=== PATIENT | female | born 1990 | race American Indian/Alaskan Native ===

== ENCOUNTER 2017-04-19 16:25 | Emergency (ER) | payer MEDICAID ==
[2017-04-19 17:04] VITALS: BP 122/72
[2017-04-19 17:45] LABS: Anion Gap 18 mmol/L; BUN/Creatinine Ratio 18; Basophils % (Auto) 0.2 % (0.0-1.8); Blood Urea Nitrogen 11 mg/dL (7-17); Calcium 9.6 mg/dL (8.4-10.2); Carbon Dioxide 27 mmol/L (22-30); Eosinophils % (Auto) 0.6 % (0.0-4.3); Glucose 94 mg/dL (65-100); Hematocrit 37.7 % (30.3-42.9); Hemoglobin 12.5 gm/dl (10.1-14.3); Mean Corpuscular HGB Conc 33 % (30-34); Mean Corpuscular Hemoglobin 27 pg (28-32); Mean Corpuscular Volume 81 fl (79-97); Platelet Count 275 K/mm3 (140-440); Potassium 3.9 mmol/L (3.6-5.0); Red Blood Count 4.68 M/mm3 (3.65-5.03); Sodium 142 mmol/L (137-145); White Blood Count 10.2 K/mm3 (4.5-11.0)
== END 2017-04-19 19:50 | disposition left against medical advice (07) ==
LOC: ED 16:25
DX: R10.9 Unspecified abdominal pain (principal); R19.7 Diarrhea, unspecified; Z53.21 Procedure and treatment not carried out due to patient leaving prior to being seen by health care provider
CPT/HCPCS: 36415; 80048; 85025

== ENCOUNTER 2020-08-11 22:44 | Emergency (ER) | payer MEDICAID ==
--- NOTE | 2020-08-11 22:50 | Emergency Department Report ---
ED General Adult HPI - General Stated complaint: CHEST PAIN PUI?: No Time Seen by Provider: 08/11/20 22:46 - History of Present Illness Initial comments: Obese [place] female assessment department complaint of left breast/chest pain presents emerged department complaining of pain is been present since last night. Chest pain to under left breast since last night. Sharp and burning. Runny nose. Denies N&V or jasbir. Cough last night. Denies fever or chills. MAEW. Nonlabored -: Gradual, Last night Location: chest Radiation: non-radiation Severity scale (0 -10): 9 Quality: aching, sharp Consistency: intermittent Improves with: none Worsens with: none Associated Symptoms: chest pain - Related Data Previous Rx's Medication Instructions Recorded Last Taken Type Hyoscyamine Subl [Levsin Sl] 0.125 mg PO Q6HR #20 tablet 12/11/13 Unknown Rx Omeprazole [Prilosec] 20 mg PO QDAY #60 capsule. 12/11/13 Unknown Rx Ondansetron [Zofran] 4 mg PO Q6HR PRN #20 tablet 12/11/13 Unknown Rx Allergies Allergy/AdvReac Type Severity Reaction Status Date / Time fluconazole [From Diflucan] Allergy Unknown Verified 08/11/20 22:58 ED Review of Systems ROS: Stated complaint: CHEST PAIN Other details as noted in HPI Comment: All other systems reviewed and negative ED Past Medical Hx - Past Medical History Hx GERD: Yes Additional medical history: heart murmur - Surgical History Additional Surgical History: c-sectionx3 - Social History Smoking Status: Never Smoker Substance Use Type: None - Medications Home Medications: Home Medications Medication Instructions Recorded Confirmed Last Taken Type Hyoscyamine Subl [Levsin Sl] 0.125 mg PO Q6HR #20 tablet 12/11/13 Unknown Rx Omeprazole [Prilosec] 20 mg PO QDAY #60 capsule. 12/11/13 Unknown Rx Ondansetron [Zofran] 4 mg PO Q6HR PRN #20 tablet 12/11/13 Unknown Rx ED Physical Exam - General General appearance: alert, in no apparent distress - Head Head exam: Present: atraumatic, normocephalic - Eye Eye exam: Present: normal appearance, PERRL - ENT ENT exam: Present: mucous membranes moist - Neck Neck exam: Present: normal inspection - Respiratory Respiratory exam: Present: normal lung sounds bilaterally, rhonchi, chest wall tenderness. Absent: respiratory distress, accessory muscle use, decreased breath sounds - Cardiovascular Cardiovascular Exam: Present: regular rate, normal rhythm. Absent: systolic murmur, diastolic murmur, rubs, gallop - GI/Abdominal GI/Abdominal exam: Present: soft, normal bowel sounds - Extremities Exam Extremities exam: Present: normal inspection - Back Exam Back exam: Present: normal inspection - Neurological Exam Neurological exam: Present: alert, oriented X3 - Psychiatric Psychiatric exam: Present: normal affect, normal mood - Skin Skin exam: Present: warm, dry, intact, normal color. Absent: rash ED Course Vital Signs 08/11/20 22:57 Temperature 97.0 F L Pulse Rate 88 Respiratory 16 Rate Blood Pressure 130/76 O2 Sat by Pulse 99 Oximetry Critical care attestation.: If time is entered above; I have spent that time in minutes in the direct care of this critically ill patient, excluding procedure time. ED Disposition Clinical Impression: Chest pain Disposition: Z-07 [facility] [place] Is pt being admited?: No Does the pt Need Aspirin: No Condition: Stable Instructions: Chest Pain (ED), Nonspecific Chest Pain, Adult
[2020-08-11 22:59] VITALS: BP 130/76
--- NOTE | 2020-08-11 23:25 | XRay Report ---
CHEST 2 VIEWS INDICATION / CLINICAL INFORMATION: Chest pain for 2 days. COMPARISON: FINDINGS: SUPPORT DEVICES: None. HEART / MEDIASTINUM: No significant abnormality. LUNGS / PLEURA: No significant pulmonary or pleural abnormality. No pneumothorax. ADDITIONAL FINDINGS: No significant additional findings. IMPRESSION: 1. No acute findings. Signer Name: Francisco Chan MD Signed: 08/11/2020 11:21 PM Workstation Name: [id number]
== END 2020-08-11 22:58 | disposition left against medical advice (07) ==
LOC: ED 22:44
DX: R07.9 Chest pain, unspecified (principal); Z53.21 Procedure and treatment not carried out due to patient leaving prior to being seen by health care provider
CPT/HCPCS: 71046; 93005

== ENCOUNTER 2022-02-15 08:25 | Emergency (ER) | payer MEDICAID ==
--- NOTE | 2022-02-15 09:29 | XRay Report ---
CHEST 2 VIEWS INDICATION / CLINICAL INFORMATION: SOB. COMPARISON: 08/11/2020 FINDINGS: SUPPORT DEVICES: None. HEART / MEDIASTINUM: No significant abnormality. LUNGS / PLEURA: No significant pulmonary or pleural abnormality. No pneumothorax. ADDITIONAL FINDINGS: No significant additional findings. IMPRESSION: 1. No acute findings. Signer Name: Paul Payne Jr, MD Signed: 02/15/2022 9:25 AM Workstation Name: [id number]
--- NOTE | 2022-02-15 09:43 | Emergency Department Report ---
Minor Respiratory - HPI Chief Complaint: Dyspnea/Respdistress Stated Complaint: SOB/VOMITTING/LOW SUGAR Time Seen by Provider: 02/15/22 09:27 ED Review of Systems ROS: Stated complaint: SOB/VOMITTING/LOW SUGAR Other details as noted in HPI Comment: All other systems reviewed and negative ED Past Medical Hx - Past Medical History Previous Medical History?: Yes Hx Hypertension: Yes Hx GERD: Yes Hx Asthma: Yes Additional medical history: heart murmur, TBI with chronic headaches, anemia - Surgical History Past Surgical History?: Yes Additional Surgical History: c-sectionx3 - Family History Family history: no significant - Social History Smoking Status: Former Smoker Substance Use Type: None - Medications Home Medications: Home Medications Medication Instructions Recorded Confirmed Last Taken Type Famotidine [Pepcid] 20 mg PO DAILY #30 tablet 02/15/22 Unknown Rx Minor Respiratory Exam - Exam General: Vital signs noted. No distress. Alert and acting appropriately. HEENT: Yes Moist Mucous Membranes, No Pharyngeal Erythema, No Pharyngeal Exudates, No Rhinorrhea, No Conjuctival Injection, No Frontal Tenderness, No M axillary Tenderness Ear: Neither TM Bulge, Neither TM Erythema, Neither EAC Pain, Neither EAC Discharge Neck: Yes Supple, No Adenopathy Lungs: Yes Good Air Exchange, No Wheezes, No Ronchi, No Stridor, No Cough, No Labored Respirations, No Retractions, No Use of Accessory Muscles, No Other Abnormal Lung Sounds Heart: Yes Regular, No Murmur Abdomen: Yes Normal Bowel Sounds, No Tenderness, No Peritoneal Signs Skin: No Rash, No Edema Neurologic: Alert and oriented, no deficits. Musculoskeletal: Unremarkable. ED Course Vital Signs 02/15/22 08:59 Temperature 97.9 F Pulse Rate 61 Respiratory 16 Rate Blood Pressure 145/97 O2 Sat by Pulse 100 Oximetry ED Medical Decision Making - Lab Data Result diagrams: 02/15/22 11:56 02/15/22 11:56 - Radiology Data Radiology results: report reviewed, image reviewed Critical care attestation.: If time is entered above; I have spent that time in minutes in the direct care of this critically ill patient, excluding procedure time. ED Disposition Clinical Impression: GERD (gastroesophageal reflux disease) Disposition: 01 HOME / SELF CARE / HOMELESS Is pt being admited?: No Does the pt Need Aspirin: No Condition: Stable Instructions: Gastroesophageal Reflux Disease, Adult, [id number] Additional Instructions: BLAND DIET FOLLOW UP WITH PCP REFERRAL BELOW ACTIVITY TOLERATED Referrals: ANNE JENNINGS MD [Staff Physician] - 3-5 Days Forms: Work/School Release Form(ED) Time of Disposition: 14:08
[2022-02-15 13:21] LABS: Hematocrit 35.4 % (30.3-42.9); Hemoglobin 11.6 gm/dl (10.1-14.3); Mean Corpuscular HGB Conc 33 % (30-34); Mean Corpuscular Volume 82 fl (79-97); Platelet Count 286 K/mm3 (140-440); Red Blood Count 4.33 M/mm3 (3.65-5.03); Red Cell Distribution Width 14.8 % (13.2-15.2)
[2022-02-15 13:34] LABS: Alanine Aminotransferase 14 units/L (7-56); Albumin 4.4 g/dL (3.9-5); Blood Urea Nitrogen 10 mg/dL (7-17); Calcium 9.4 mg/dL (8.4-10.2); Hemolysis Index 19
[2022-02-15 13:48] LABS: BUN/Creatinine Ratio 17
[2022-02-15 14:38] VITALS: BP 138/74
--- NOTE | 2022-02-17 18:12 | Electrocardiograph Report ---
[facility] Test Date: 2022-02-15 Test Time: 09:11:53 Pat Name: MARTHA VEGA Department: Room: Gender: F Chief Operating Engineer: DENIS : 1990 Requested By: ED DOC Order Number: [id number] Reading MD: Lisa Spangler Measurements Intervals [place] Rate: 62 P: 54 [place]: 163 QRS: 53 QRSD: 99 T: -3 QT: 410 QTc: 417 Interpretive Statements Sinus rhythm No previous ECG available for comparison Electronically Signed On 02-17-2022 18:11:52 EDT by Lisa Spangler
== END 2022-02-15 14:37 | disposition home or self-care (01) ==
LOC: ED 08:25
DX: K21.9 Gastro-esophageal reflux disease without esophagitis (principal); I10 Essential (primary) hypertension; J45.909 Unspecified asthma, uncomplicated; Z98.890 Other specified postprocedural states; Z87.891 Personal history of nicotine dependence
CPT/HCPCS: 36415; 71046; 80053; 83690; 85027; 93005; 99283

== ENCOUNTER 2022-02-28 17:48 | Emergency (ER) | payer MEDICAID | END 2022-02-28 20:15 | disposition left against medical advice (07) | LOC: ED 17:48 | DX: M25.48 Effusion, other site (principal); Z53.21 Procedure and treatment not carried out due to patient leaving prior to being seen by health care provider ==